=== PATIENT | female | born 1975 | race African-American/Black ===

== ENCOUNTER 2017-09-12 14:05 | Emergency (ER) | payer OTHER ==
[~2017-09-12] VITALS: Ht 160 cm; Wt 68.0 kg
[~2017-09-12 14:05] MED LIST: ALBUTEROL SULF8.5 GM INH; AZITHROMYCIN250 MG ORAL; NORCO 5-325 TA1 EACH ORAL
[2017-09-12] MEDS ORDERED: Norco 5mg/325mg tab ORAL ONE (15:30)
--- NOTE | 2017-09-12 15:55 | Diagnostic Imaging Report ---
Indication: Reason For Exam: PAIN Technique: 3 views left foot Comparison: none Findings: There is chronic appearing periosteal reaction along the distal shaft of the second metatarsal. There is a small exostosis along the medial shaft of the second metatarsal, visible on the oblique view. There is marked hallux valgus, mild metatarsus adductus. No definite acute fractures. No dislocations. There is a small plantar spur. Impression: No definite acute abnormality Chronic appearing periosteal reaction along the shaft of the second metatarsal, may indicate an old stress fracture
[2017-09-12] MEDS ORDERED: CEPHALEXIN500 MG ORAL (16:21)
[2017-09-12] MEDS ORDERED: BACTRIM DS TAB1 EAC1 ORAL (16:21)
[2017-09-12] MEDS ORDERED: NORCO 5-325 TA1 EAC1 ORAL (16:21)
[2017-09-12 16:30] VITALS: BP 120/70
--- NOTE | 2017-09-12 22:06 | Emergency Room Report ---
History of Present Illness General Chief Complaint: Lower Extremity Injury Source: Patient Present Illness HPI The patient is a 41-year-old female presenting for left toe pain. She states that someone stepped on it 2 days ago. Pain is a 10 out of 10 dull ache. Does not radiate. Worse with touch. She denies previous injury to the area. She denies any other symptoms including fever, chills, numbness, tingling, calf pain Allergies: Coded Allergies: No Known Allergies (Unverified , 03/01/15) Patient History Past Medical History: see triage record Pertinent Family History: none Reviewed Nursing Documentation: PMH: Agreed, PSxH: Agreed Nursing Documentation-PMH Past Medical History: No History, Except For Hx Cardiac Problems: No - Sickle Cell Hx Hypertension: No Hx Pacemaker: No Hx Asthma: Yes Hx COPD: No Hx Diabetes: No Hx Cancer: No Hx Gastrointestinal Problems: No Hx Dialysis: No Hx Neurological Problems: No Hx Cerebrovascular Accident: No Hx Seizures: No Review of Systems All Other Systems: negative except mentioned in HPI Physical Exam Vital Signs Date Time Temp Pulse Resp B/P (MAP) Pulse Ox O2 Delivery O2 Flow Rate FiO2 09/12/17 15:00 98.1 86 16 123/73 99 Room Air Sp02 EP Interpretation: reviewed, normal General Appearance: no apparent distress, alert, GCS 15, non-toxic Head: normocephalic, atraumatic Eyes: bilateral eye normal inspection, bilateral eye PERRL Musculoskeletal: normal range of motion, swelling - L 3rd toe, tender - L 3rd toe Neurologic: alert, oriented x3, responsive, motor strength/tone normal, sensory intact, speech normal Psychiatric: judgement/insight normal, memory normal, mood/affect normal, no suicidal/homicidal ideation Skin: rash - erythema L 3rd toe Procedures Splinting Splinting : Consent: Verbal Location: L foot Pre-Made Type: cast shoe Pre-Proc Neuro Vasc Exam: normal Post-Proc Neuro Vasc Exam: normal Patient Tolerated: Well Complications: None Medical Decision Making PA Attestation Dr. Ruggiero is my supervising physician. Patient management was discussed with my supervising physician Diagnostic Impression: Primary Impression: Cellulitis, toe Qualified Codes: L03.032 - Cellulitis of left toe ER Course The patient is a 41-year-old female presenting for left toe pain. Differential diagnoses considered but not limited to: abscess, cellulitis, insect bite, fracture, among others PE: Afebrile. No apparent distress Left foot third digit has erythema with some swelling and tenderness to palpation. Skin is intact. Warm to the touch. Full active range of motion intact. No fluctuance X-ray of the foot is unremarkable The patient will be discharged home with prescription for antibiotics and pain medication. Cast shoe was placed. ER precautions given Other X-Ray Diagnostic Results Other X-Ray Diagnostic Results : X-Ray ordered: L foot # of Views/Limited Vs Complete: 3 View Indication: Pain EP Interpretation: Yes SCAR Xray: Interpretation reviewed, by supervising MD, and agrees with findings. Interpretation: no dislocation, no soft tissue swelling, no fractures Impression: No acute disease Electronically Signed by: Humberto Bridges PA-C Last Vital Signs Date Time Temp Pulse Resp B/P (MAP) Pulse Ox O2 Delivery O2 Flow Rate FiO2 09/12/17 16:30 98.1 77 16 120/70 99 Room Air Status: improved Disposition: HOME, SELF-CARE Condition: Improved Scripts Hydrocodone Bit/Acetaminophen 5-325* (NORCO 5-325 TABLET*) 1 Each Tablet 1 TAB ORAL Q6HR Y for For Pain, #10 TAB Prov: TERZIANHUMBERTO P.A. 09/12/17 Trimethoprim/Sulfamethoxazole 160/800* (BACTRIM DS TABLET*) 1 Each Tablet 1 TAB ORAL TWICE A DAY, #14 TAB Prov: TERZIAN,HUMBERTO P.A. 09/12/17 Cephalexin* (KEFLEX*) 500 Mg Capsule 500 MG ORAL EVERY 12 HOURS, #14 CAP 0 Refills Prov: TERZIANHUMBERTO P.A. 09/12/17 Patient Instructions: Cellulitis Additional Instructions: I discussed my findings with the patient. All questions and concerns have been answered. Treatment and medication compliance have been addressed. I advised the patient that they need to follow up with PMD in 3-5 days. Return to ED if symptoms worsen, new symptoms arise, redness worsens, you get a fever, or if needed for any reason. Patient verbalized understanding of discharge instructions. HUMBERTO BRIDGES Sep 12, 2017 22:06
== END 2017-09-12 16:30 | disposition home or self-care (01) ==
LOC: EMR 15:53
DX: L03.032 Cellulitis of left toe (principal); J45.909 Unspecified asthma, uncomplicated
CPT/HCPCS: 99284

== ENCOUNTER 2017-10-22 10:44 | Emergency (ER) | payer OTHER ==
[~2017-10-22] VITALS: Ht 162.6 cm; Wt 68.0 kg
[~2017-10-22 10:44] MED LIST changes: +BACTRIM DS TAB1 EAC1 ORAL; +CEPHALEXIN500 MG ORAL; +NORCO 5-325 TA1 EAC1 ORAL
[2017-10-22] MEDS ORDERED: Norco 5mg/325mg tab ORAL ONE (12:00)
[2017-10-22 12:25] LABS: BASOPHILS % (AUTO) 0.8 % (0.0-2.0); EOSINOPHILS % (AUTO) 1.4 % (0.0-3.0); HEMATOCRIT 30.6 % (37.0-47.0); HEMOGLOBIN 8.6 G/DL (12.0-16.0); LYMPHOCYTES % (AUTO) 33.7 % (20.0-45.0); MEAN CORPUSCULAR VOLUME 66 FL (80-99); NEUTROPHILS % (AUTO) 52.1 % (45.0-75.0); PLATELET COUNT 158 K/UL (150-450); RED BLOOD COUNT 4.61 M/UL (4.20-5.40); RED CELL DISTRIBUTION WIDTH 28.9 % (11.6-14.8); WHITE BLOOD COUNT 7.9 K/UL (4.8-10.8)
[2017-10-22 12:35] LABS: ANION GAP 8 mmol/L (5-15); BLOOD UREA NITROGEN 7 mg/dL (7-18); CALCIUM 8.1 MG/DL (8.5-10.1); CARBON DIOXIDE 27 MMOL/L (21-32); CHLORIDE 104 MMOL/L (98-107); CREATININE 0.5 MG/DL (0.55-1.30); POTASSIUM 3.6 MMOL/L (3.5-5.1); SODIUM 139 MMOL/L (136-145)
[2017-10-22 12:39] LABS: ALANINE AMINOTRANSFERASE 27 U/L (12-78); ALBUMIN 2.9 G/DL (3.4-5.0); ALBUMIN/GLOBULIN RATIO 0.6 (1.0-2.7); ALKALINE PHOSPHATASE 109 U/L (46-116); ASPARTATE AMINO TRANSFERASE 48 U/L (15-37); BILIRUBIN,TOTAL 0.3 MG/DL (0.2-1.0)
--- NOTE | 2017-10-22 12:40 | Emergency Room Report ---
History of Present Illness General Chief Complaint: Lower Extremity Injury Source: Patient Present Illness HPI 42-year-old female, presenting with left second toe pain. Patient states that 2 weeks ago she is seen at [facility], after someone fell onto it, states that she fractured it. States that she was placed on a hard sole shoe but has not seen an orthopedic surgeon yet. Patient states that left toe became more swollen. More painful. She only has a history of asthma and sickle cell disease. No diabetes. No new trauma. States that [facility] put her on a pack of antibiotics which she finished Allergies: Coded Allergies: No Known Allergies (Unverified , 03/01/15) Patient History Past Medical History: see triage record Past Surgical History: none Pertinent Family History: none Last Menstrual Period: Two weeks ago Now: No Reviewed Nursing Documentation: PMH: Agreed, PSxH: Agreed Nursing Documentation-PMH Hx Cardiac Problems: No - Sickle Cell Hx Pacemaker: No Hx Asthma: Yes Hx COPD: No Hx Diabetes: No Hx Cancer: No Hx Gastrointestinal Problems: No Hx Dialysis: No Hx Neurological Problems: No Hx Cerebrovascular Accident: No Hx Seizures: No Review of Systems All Other Systems: negative except mentioned in HPI Physical Exam Vital Signs Date Time Temp Pulse Resp B/P (MAP) Pulse Ox O2 Delivery O2 Flow Rate FiO2 10/22/17 10:54 97.5 82 16 154/88 99 Room Air 97.5 Sp02 EP Interpretation: reviewed, normal General Appearance: alert, GCS 15, non-toxic, mild distress Head: normocephalic, atraumatic Eyes: bilateral eye normal inspection, bilateral eye PERRL, bilateral eye EOMI ENT: normal ENT inspection, normal pharynx, normal voice, moist mucus membranes Neck: normal inspection, full range of motion, supple Respiratory: normal inspection, lungs clear, normal breath sounds, no respiratory distress, no retraction, no wheezing, speaking full sentences, chest symmetrical Cardiovascular #1: normal inspection, regular rate, rhythm, normal capillary refill Cardiovascular #2: 2+ radial (R), 2+ radial (L) Gastrointestinal: normal inspection, non tender, soft, non-distended, no guarding Musculoskeletal: other - L 2nd toe with edema/swelling. limited rom 2/2 to pain. no gross bony deformities Neurologic: normal inspection, alert, oriented x3, responsive, motor strength/ tone normal, sensory intact, normal gait, speech normal Psychiatric: normal inspection, judgement/insight normal, memory normal Skin: normal inspection, normal color, no rash, warm/dry, well hydrated, normal turgor Medical Decision Making Diagnostic Impression: Primary Impression: Toe fracture, left ER Course 42-year-old female with left second toe pain for 2 weeks DDX: Fracture, versus infection, versus osteo Plan: Obtain labs, x-ray ER course: Patient has remained stable during ED stay. She has been ambulating with her cane around the emergency room Labs unremarkable CRP normal will DC home Disposition: Patient is to be discharged to home. Patient is instructed to follow up with their primary care doctor within 5 days. FU with orthopedic surgery 1 week Strict return precautions discussed with patient such as fever, chills, worsening/severe pain,, which may indicate severe illness. Patient verbalizes understanding and agrees with plan. Please note that this Emergency Department Report was dictated using [email or web address] pl[employer] technology software, occasionally this can lead to erroneous entry secondary to interpretation by the dictation equipment Xray: Left foot 3 view Indication: Pain EP Interpretation: Yes Interpretation: old fx 2nd toe Impression: No acute disease Electronically signed by Alina Ruggiero MD Laboratory Tests Test 10/22/17 12:10 White Blood Count 7.9 K/UL (4.8-10.8) Red Blood Count 4.61 M/UL (4.20-5.40) Hemoglobin 8.6 G/DL (12.0-16.0) L Hematocrit 30.6 % (37.0-47.0) L Mean Corpuscular Volume 66 FL (80-99) L Mean Corpuscular Hemoglobin 18.7 PG (27.0-31.0) L Mean Corpuscular Hemoglobin Concent 28.2 G/DL (32.0-36.0) L Red Cell Distribution Width 28.9 % (11.6-14.8) H Platelet Count 158 K/UL (150-450) Mean Platelet Volume 6.3 FL (6.5-10.1) L Neutrophils (%) (Auto) 52.1 % (45.0-75.0) Lymphocytes (%) (Auto) 33.7 % (20.0-45.0) Monocytes (%) (Auto) 12.0 % (1.0-10.0) H Eosinophils (%) (Auto) 1.4 % (0.0-3.0) Basophils (%) (Auto) 0.8 % (0.0-2.0) Erythrocyte Sedimentation Rate Pending Sodium Level 139 MMOL/L (136-145) Potassium Level 3.6 MMOL/L (3.5-5.1) Chloride Level 104 MMOL/L (98-107) Carbon Dioxide Level 27 MMOL/L (21-32) Anion Gap 8 mmol/L (5-15) Blood Urea Nitrogen 7 mg/dL (7-18) Creatinine 0.5 MG/DL (0.55-1.30) L Estimate Glomerular Filtration Rate > 60 mL/min (>60) Glucose Level 89 MG/DL (74-106) Lactic Acid Level 2.00 mmol/L (0.66-2.22) Calcium Level 8.1 MG/DL (8.5-10.1) L Total Bilirubin 0.3 MG/DL (0.2-1.0) Aspartate Amino Transferase (AST) 48 U/L (15-37) H Alanine Aminotransferase (ALT) 27 U/L (12-78) Alkaline Phosphatase 109 U/L (46-116) C-Reactive Protein, Quantitative < 0.4 mg/dL (0.00-0.90) Total Protein 7.4 G/DL (6.4-8.2) Albumin 2.9 G/DL (3.4-5.0) L Globulin 4.5 g/dL Albumin/Globulin Ratio 0.6 (1.0-2.7) L Last Vital Signs Date Time Temp Pulse Resp B/P (MAP) Pulse Ox O2 Delivery O2 Flow Rate FiO2 10/22/17 11:56 97.5 10/22/17 10:54 82 16 154/88 99 Room Air Disposition: HOME, SELF-CARE Condition: Improved Scripts Hydrocodone Bit/Acetaminophen 5-325* (NORCO 5-325*) 1 Each Tablet 1 TAB ORAL Q6H Y for For Pain, #20 TAB 0 Refills Prov: Alina Ruggiero M.D. 10/22/17 Referrals: NOT CHOSEN NISHA/,REFERRING (PCP) Alina Ruggiero M.D. Oct 22, 2017 12:40
[2017-10-22 13:05] VITALS: BP 138/87
--- NOTE | 2017-10-22 13:12 | Diagnostic Imaging Report ---
Indication: Pain Comparison: None Findings: 3 views of the left foot were obtained. Bones are osteopenic. There is a moderate hallux valgus deformity present. No obvious fracture identified. Plantar calcaneal spur noted. Generalized joint space narrowing present throughout the foot. IMPRESSION: No acute injury
[2017-10-22] MEDS ORDERED: NORCO 5-325 TA1 EACH ORAL (14:21)
[2017-10-22 14:32] VITALS: BP 138/87
== END 2017-10-22 15:55 | disposition home or self-care (01) ==
LOC: EMR 11:29
DX: S92.502A Displaced unspecified fracture of left lesser toe(s), initial encounter for closed fracture (principal); W20.8XXA Other cause of strike by thrown, projected or falling object, initial encounter; Y92.9 Unspecified place or not applicable
CPT/HCPCS: 36415; 80053; 83605; 85025; 85651; 86140; 87040; 99284